=== PATIENT | male | born 1945 | race Caucasian/White ===

== ENCOUNTER 2020-02-07 07:47 | Day surgery (SDC) | payer BC ==
[~2020-02-07] VITALS: Ht 188 cm; Wt 107.3 kg
[2020-02-07] VITALS (12 sets, daily range): BP systolic 108–141; BP diastolic 67–91
[~2020-02-07 07:47] MED LIST: ALB0.5UD IH; ALBU8.5H8 INH; APIX5TAB3 PO; ATOR80TA13 PO; BUDE0.5A3 INH; CLOP75TA15 PO; DULA0.75 SUBCUT; FLO0.4C PO; HYDR-4353 PO; INSU100V41 SUBCUT; INUL2TAB5 PO; LACT1CAP65 PO; LISI-604 PO; METO100T7 PO; NITR0.4T51 SL; OMEG-79 PO; PANT20TA18 PO; TORS20TA3 PO
[2020-02-07] MEDS ORDERED: normal saline 1,000 ML IV SCH ×3 (08:10→14:05)
[2020-02-07] MEDS ORDERED: diphenhydrAMINE 25mg capsule PO PRN (08:10)
[2020-02-07] MEDS ORDERED: verapamil 2.5 mg/ml inj IV ONE (08:58)
[2020-02-07] MEDS ORDERED: fentaNYL/PF 50MCG/1 ML 2ML syringe ONE ×2 (08:58→11:06)
[2020-02-07] MEDS ORDERED: nitroGLYCERIN-Tridil 50MG/D5W 250 ML IV ONE (08:58)
[2020-02-07] MEDS ORDERED: heparin 1,000unit/ml 10ml vial 10 ML ONE ×2 (08:58→10:09)
[2020-02-07] MEDS ORDERED: midazolam 2 mg/2 ml injection ONE ×3 (08:58→10:49)
[2020-02-07] MEDS ORDERED: iohexol 350 MG/1 ML 200ml bottle ONE (08:59)
[2020-02-07] MEDS ORDERED: LIDOcaine 1% (10mg/ml)w/preservative injection 20ml MDV ONE (09:00)
[2020-02-07] MEDS ORDERED: heparin 1,000 UNITS/NS 500ml 500 ML ONE (09:09)
[2020-02-07 09:30] LABS: BASOPHILS # (AUTO) 0.1 X10'3 (0-0.2); BASOPHILS % (AUTO) 0.8 % (0-1); EOSINOPHILS # (AUTO) 0.2 X10'3 (0-0.9); EOSINOPHILS % (AUTO) 3.4 % (0-6); HEMATOCRIT 41.8 % (42.0-52.0); HEMOGLOBIN 13.6 g/dl (14.0-17.9); LYMPHOCYTES # (AUTO) 0.6 X10'3 (1.1-4.8); LYMPHOCYTES % (AUTO) 9.5 % (21-51); MEAN CORPUSCULAR HEMOGLOBIN 29.8 PG (27.0-31.0); MEAN CORPUSCULAR HGB CONC 32.6 g/dL (33.0-36.5); MEAN CORPUSCULAR VOLUME 91.4 FL (78-98); MEAN PLATELET VOLUME 10.6 FL (7.4-10.4); MONOCYTES # (AUTO) 0.7 X10'3 (0-0.9); MONOCYTES % (AUTO) 10.1 % (2-12); NEUTROPHILS % (AUTO) 76.2 % (42-75); PLATELET COUNT 146 X10'3 (140-440); RED BLOOD COUNT 4.57 X10'6 (4.70-6.10); RED CELL DISTRIBUTION WIDTH 16.4 % (11.5-14.5); WHITE BLOOD COUNT 6.6 X10'3 (4.5-11.0)
[2020-02-07 10:05] LABS: ALBUMIN 3.3 G/DL (3.4-5.0); ANION GAP 10 (8-16); BLOOD UREA NITROGEN 44 MG/DL (7-18); CALCIUM 8.6 MG/DL (8.5-10.1); CHLORIDE 106 MMOL/L (99-107); CREATININE 1.69 MG/DL (0.60-1.10); GLUCOSE 99 MG/DL (70-104); MAGNESIUM 1.9 MG/DL (1.5-2.4); POTASSIUM 3.5 MMOL/L (3.5-5.1); SODIUM 143 MMOL/L (135-145); TOTAL CARBON DIOXIDE 26.8 MMOL/L (24-32); eGFR 40 ML/MIN
[2020-02-07 10:42] LABS: ANISOCYTOSIS 1+; BURR CELLS 1+; LARGE PLATELETS FEW; PLATELET ESTIMATE NORMAL
[2020-02-07] MEDS ORDERED: atropine 0.1mg/ml 10ml syringe ONE (11:17)
[2020-02-07] MEDS ORDERED: ondansetron/PF 4mg/2ml inj IV PRN (12:05)
[2020-02-07] MEDS ORDERED: OXAZEpam 15mg capsule PO PRN (12:05)
[2020-02-07] MEDS ORDERED: HYDROcodone/acetaminophen 10/325mg tab PO PRN (12:05)
[2020-02-07] MEDS ORDERED: HYDROcodone/acetaminophen 5mg/325mg tablet PO PRN (12:05)
[2020-02-07] MEDS ORDERED: proCHLORperazine 10 MG/2 ml inj IV PRN (12:05)
[2020-02-07] MEDS ORDERED: bumetanide 0.25mg/ml 4ml vial IV ONE (13:00)
== END 2020-02-07 16:00 | disposition home or self-care (01) ==
LOC: SSTAY O 07:47
PROVIDERS: ATTEND Internal Medicine Cardiovascular Disease
DX: I44.7 Left bundle-branch block, unspecified (principal); I25.10 Atherosclerotic heart disease of native coronary artery without angina pectoris; I42.0 Dilated cardiomyopathy; I25.2 Old myocardial infarction; I48.20 Chronic atrial fibrillation, unspecified; E11.22 Type 2 diabetes mellitus with diabetic chronic kidney disease; I12.9 Hypertensive chronic kidney disease with stage 1 through stage 4 chronic kidney disease, or unspecified chronic kidney disease; N18.4 Chronic kidney disease, stage 4 (severe); N40.0 Benign prostatic hyperplasia without lower urinary tract symptoms; E78.5 Hyperlipidemia, unspecified; M19.90 Unspecified osteoarthritis, unspecified site; Z95.5 Presence of coronary angioplasty implant and graft; Z96.653 Presence of artificial knee joint, bilateral; Z96.641 Presence of right artificial hip joint; Z88.8 Allergy status to other drugs, medicaments and biological substances; Z79.01 Long term (current) use of anticoagulants; Z79.899 Other long term (current) drug therapy
CPT/HCPCS: 36415; 80048; 83735; 85025; 85610; 93005; 99152; 99153; C1725; C1751; C1756; C1760; C1769; C1874; C1885; C1892; C1894; C9602; J0461; J1644; J2001; J2250; J3010; J7030; Q0163; Q9967; 85008; A6258; J3490

== ENCOUNTER 2020-04-06 07:34 | Day surgery (SDC) | payer BC ==
[2020-04-06] VITALS (9 sets, daily range): BP systolic 102–137; BP diastolic 64–85
[~2020-04-06] VITALS: Ht 188 cm; Wt 100.9 kg
[~2020-04-06 07:34] MED LIST changes: -INUL2TAB5 PO; -LACT1CAP65 PO; -LISI-604 PO; +LISI-790 PO; -NITR0.4T51 SL; -OMEG-79 PO
[2020-04-06] MEDS ORDERED: MIDAZolam 1mg/ml 10ml vial IV ONE (08:05)
[2020-04-06] MEDS ORDERED: normal saline 1000ml 1,000 ML IV SCH (08:05)
[2020-04-06] MEDS ORDERED: fentaNYL/PF 50MCG/1 ML 2ML syringe IV ONE (08:05)
[2020-04-06] MEDS ORDERED: cefazolin/dext.iso 2gm/50ml 50 ML IV ONE (08:10)
[2020-04-06] MEDS ORDERED: LISI10TA27 PO (08:17)
[2020-04-06] MEDS ORDERED: IPRA3AMP31 NEB (08:17)
[2020-04-06] MEDS ORDERED: POTA-82 PO (08:19)
[2020-04-06] MEDS ORDERED: MAGN400C PO (08:24)
[2020-04-06] MEDS ORDERED: FLUT1BLS16 INH (08:24)
[2020-04-06] MEDS ORDERED: DOCU-148 PO (08:24)
[2020-04-06] MEDS ORDERED: ALBU18HF2 IH (08:24)
[2020-04-06] MEDS ORDERED: CLOB30CR11 TOP (08:24)
[2020-04-06] MEDS ORDERED: LACT1CAP57 PO (08:24)
[2020-04-06] MEDS ORDERED: SERT25TA84 (08:24)
[2020-04-06 08:27] LABS: BASOPHILS % (AUTO) 0.8 % (0-1); EOSINOPHILS # (AUTO) 0.2 X10'3 (0-0.9); HEMATOCRIT 42.6 % (42.0-52.0); HEMOGLOBIN 14.3 g/dl (14.0-17.9); LYMPHOCYTES % (AUTO) 17.3 % (21-51); MEAN CORPUSCULAR HEMOGLOBIN 30.3 PG (27.0-31.0); MEAN CORPUSCULAR HGB CONC 33.5 g/dL (33.0-36.5); MEAN CORPUSCULAR VOLUME 90.4 FL (78-98); MEAN PLATELET VOLUME 8.5 FL (7.4-10.4); MONOCYTES # (AUTO) 0.5 X10'3 (0-0.9); MONOCYTES % (AUTO) 8.9 % (2-12); PLATELET COUNT 189 X10'3 (140-440); RED BLOOD COUNT 4.72 X10'6 (4.70-6.10); RED CELL DISTRIBUTION WIDTH 17.1 % (11.5-14.5); WHITE BLOOD COUNT 5.8 X10'3 (4.5-11.0)
[2020-04-06] MEDS ORDERED: NITR0.4T48 SL (08:31)
[2020-04-06] MEDS ORDERED: INSU100I25 SQ (08:31)
[2020-04-06 08:39] LABS: ALBUMIN 3.7 G/DL (3.4-5.0); ANION GAP 11 (8-16); BLOOD UREA NITROGEN 45 MG/DL (7-18); CALCIUM 9.1 MG/DL (8.5-10.1); CHLORIDE 104 MMOL/L (99-107); GLUCOSE 116 MG/DL (70-104); MAGNESIUM 1.9 MG/DL (1.5-2.4); POTASSIUM 4.1 MMOL/L (3.5-5.1); SODIUM 140 MMOL/L (135-145)
[2020-04-06 08:43] LABS: CREATININE 1.94 MG/DL (0.60-1.10); eGFR 34 ML/MIN
[2020-04-06] MEDS ORDERED: midazolam 2 mg/2 ml injection ONE ×3 (08:55→10:41)
[2020-04-06] MEDS ORDERED: proCHLORperazine 10 MG/2 ml inj ONE (08:55)
[2020-04-06] MEDS ORDERED: LIDOcaine 1% W/epiNEPHrine 1:100,000 20ml vial ONE (08:55)
[2020-04-06] MEDS ORDERED: fentaNYL/PF 50MCG/1 ML 2ML syringe ONE ×3 (08:55→10:41)
[2020-04-06 09:05] LABS: BUN/CREATININE RATIO 23.2 (5.4-32.0)
[2020-04-06] MEDS ORDERED: iohexol 350MG/ML 100ml bottle IV ONE (09:35)
[2020-04-06] MEDS ORDERED: vancomycin 1,000mg inj ONE (10:39)
[2020-04-06] MEDS ORDERED: HYDROcodone/acetaminophen 10/325mg tab PO PRN (11:50)
[2020-04-06] MEDS ORDERED: HYDROcodone/acetaminophen 5mg/325mg tablet PO PRN (11:50)
[2020-04-06] MEDS ORDERED: normal saline 1000ml 1,000 ML IV ONE (11:55)
== END 2020-04-06 14:00 | disposition home or self-care (01) ==
LOC: SSTAY O 07:34
PROVIDERS: ATTEND Internal Medicine Cardiovascular Disease
DX: I42.0 Dilated cardiomyopathy (principal); I25.5 Ischemic cardiomyopathy; I47.2 Ventricular tachycardia; I44.7 Left bundle-branch block, unspecified; I48.92 Unspecified atrial flutter; Z79.899 Other long term (current) drug therapy
CPT/HCPCS: 33225; 33249; 36415; 71045; 80048; 82948; 83735; 85025; 85610; 92960; 93005; 99152; 99153; C1769; C1882; C1887; C1895; C1900; J0780; J2250; J3010; J3370; Q9967; 93641; A4565; A4620; A6258; C1777; C1898

== ENCOUNTER 2020-06-29 22:58 | Observation (INO) | payer BC ==
[~2020-06-29] VITALS: Ht 188 cm; Wt 95.5 kg
[~2020-06-29 22:58] MED LIST changes: -ALB0.5UD IH; +ALBU18HF2 IH; +CLOB30CR11 TOP; +DOCU-148 PO; +FLUT1BLS16 INH; +INSU100I25 SQ; -INSU100V41 SUBCUT; +IPRA3AMP31 NEB; +LACT1CAP57 PO; -LISI-790 PO; +LISI10TA27 PO; +MAGN400C PO; +NITR0.4T48 SL; +POTA-82 PO; +SERT25TA84 PO
[2020-06-30 00:31] LABS: BASOPHILS % (AUTO) 0.7 % (0-1); EOSINOPHILS # (AUTO) 0.3 X10'3 (0-0.9); EOSINOPHILS % (AUTO) 4.5 % (0-6); HEMOGLOBIN 12.8 g/dl (14.0-17.9); LYMPHOCYTES # (AUTO) 0.8 X10'3 (1.1-4.8); MEAN CORPUSCULAR HEMOGLOBIN 31.7 PG (27.0-31.0); MEAN CORPUSCULAR HGB CONC 33.6 g/dL (33.0-36.5); MEAN CORPUSCULAR VOLUME 94.3 FL (78-98); MEAN PLATELET VOLUME 7.8 FL (7.4-10.4); MONOCYTES # (AUTO) 0.6 X10'3 (0-0.9); MONOCYTES % (AUTO) 8.8 % (2-12); NEUTROPHILS # (AUTO) 4.9 X10'3 (1.8-7.7); PLATELET COUNT 254 X10'3 (140-440); RED BLOOD COUNT 4.03 X10'6 (4.70-6.10); RED CELL DISTRIBUTION WIDTH 14.5 % (11.5-14.5); WHITE BLOOD COUNT 6.6 X10'3 (4.5-11.0)
[2020-06-30 00:38] LABS: ALANINE AMINOTRANSFERASE 22 U/L (12-78); ALBUMIN 3.3 G/DL (3.4-5.0); ALBUMIN/GLOBULIN RATIO 0.9 (1.1-1.5); ALKALINE PHOSPHATASE 94 IU/L (46-116); ANION GAP 9 (8-16); ASPARTATE AMINO TRANSFERASE 24 U/L (10-37); BILIRUBIN,TOTAL 0.4 MG/DL (0.1-1.0); BLOOD UREA NITROGEN 21 MG/DL (7-18); BUN/CREATININE RATIO 17.5 (5.4-32.0); CALCIUM 8.5 MG/DL (8.5-10.1); CHLORIDE 105 MMOL/L (99-107); GLUCOSE 151 MG/DL (70-104); POTASSIUM 3.9 MMOL/L (3.5-5.1); SODIUM 141 MMOL/L (135-145); TOTAL CARBON DIOXIDE 26.6 MMOL/L (24-32); TOTAL PROTEIN 6.8 G/DL (6.4-8.2); eGFR 59 ML/MIN
[2020-06-30] MEDS ORDERED: iohexol 350MG/ML 100ml bottle IV ONE (01:20)
--- NOTE | 2020-06-30 01:30 | NUR ---
Pt presents d/t "coughing up blood." Hx of blood thinner use r/t cardiac stenting and AICD. Pt AAOx4, no s/sx of acute distress noted. Respirations even, unlabored. Will continue to monitor.
--- NOTE | 2020-06-30 01:35 | NUR ---
Pt to CT
[2020-06-30] MEDS ORDERED: POTA10TA19 PO (02:55)
[2020-06-30] MEDS ORDERED: EMPA10TA PO (02:55)
[2020-06-30] MEDS ORDERED: MULT-1172 (02:56)
[2020-06-30] MEDS ORDERED: INUL2TAB5 PO (02:56)
[2020-06-30] MEDS ORDERED: PANC1CAP PO (02:56)
[2020-06-30] MEDS ORDERED: SIME125C43 PO (02:56)
[2020-06-30] MEDS ORDERED: ALBU18HF2 IH (02:56)
[2020-06-30] MEDS ORDERED: nitroGLYCERIN 0.4mg SUBLingual tab SL PRN (03:10)
[2020-06-30] MEDS ORDERED: ipratropium/albuterol 3ml nebule NEB PRN (03:10)
[2020-06-30] MEDS ORDERED: budesonide 0.5mg/2ml UD nebule IH PRN (03:10)
[2020-06-30] MEDS ORDERED: HYDROcodone/acetaminophen 10/325mg tab PO PRN ×2 (03:10→03:30)
[2020-06-30] MEDS ORDERED: magnesium 2GM in 50ml NS 50 ML IV PRN (03:30)
[2020-06-30] MEDS ORDERED: mag hydrox/Alum hydrox/simeth 30ml oral suspension PO PRN (03:30)
[2020-06-30] MEDS ORDERED: potassium Cl 20 mEq SR tablet PO PRN ×2 (03:30)
[2020-06-30] MEDS ORDERED: ondansetron/PF 4mg/2ml inj IV PRN (03:30)
[2020-06-30] MEDS ORDERED: HYDROcodone/acetaminophen 5mg/325mg tablet PO PRN (03:30)
[2020-06-30] MEDS ORDERED: acetaminophen 325mg tablet PO PRN ×2 (03:30)
[2020-06-30] MEDS ORDERED: magnesium 4gm in 100ml NS 100 ML IV PRN (03:30)
[2020-06-30] MEDS ORDERED: potassium Cl 40MEQ/1/2NS 520ml 520 ML IV PRN ×2 (03:30)
[2020-06-30] MEDS ORDERED: dextrose 50%-water 50ml dispensing syringe IV PRN ×2 (03:50)
[2020-06-30] MEDS ORDERED: dextrose ORAL solution 15 GM/59 ML bottle PO PRN ×2 (03:50)
[2020-06-30] MEDS ORDERED: glucagon, human recombinant 1mg kit SUBCUT PRN (03:50)
[2020-06-30] MEDS ORDERED: MESSAGE TO PHARMACY PO ONE (03:50)
[2020-06-30] MEDS ORDERED: insulin Lispro (HumaLOG) vial - multi-dose SQ SCH (03:50)
[2020-06-30] MEDS ORDERED: sertraline 25mg tablet PO SCH (04:00)
[2020-06-30 04:16] LABS: HEMOGLOBIN A1C 5.8 % (4.5-6.2)
[2020-06-30] MEDS ORDERED: hydrALAZINE 20mg/ml inj. IV ONE (05:20)
[2020-06-30 06:00] VITALS: BP 180/106
[2020-06-30] MEDS ORDERED: pantoprazole 40mg Tablet.DR PO SCH (07:30)
[2020-06-30 07:37] LABS: HEMATOCRIT 37.9 % (42.0-52.0); HEMOGLOBIN 12.7 g/dl (14.0-17.9); MEAN CORPUSCULAR HEMOGLOBIN 31.7 PG (27.0-31.0); MEAN CORPUSCULAR HGB CONC 33.5 g/dL (33.0-36.5); MEAN CORPUSCULAR VOLUME 94.5 FL (78-98); PLATELET COUNT 249 X10'3 (140-440); RED BLOOD COUNT 4.01 X10'6 (4.70-6.10); RED CELL DISTRIBUTION WIDTH 14.6 % (11.5-14.5)
[2020-06-30] MEDS ORDERED: K and/or MAG REPLACEMENT MC SCH (08:00)
[2020-06-30] MEDS ORDERED: lisinopril 10 MG tablet PO SCH (08:00)
[2020-06-30] MEDS ORDERED: docusate sod 100mg capsule PO SCH (08:00)
[2020-06-30] MEDS ORDERED: metoprolol succinate 25mg (24-HOUR) SR. Tablet PO SCH (08:00)
[2020-06-30] MEDS ORDERED: Torsemide 20 MG TABLET PO SCH (08:00)
[2020-06-30] MEDS ORDERED: atorvastatin 20mg tablet PO SCH (08:00)
[2020-06-30] MEDS ORDERED: tamsulosin 0.4mg capsule PO SCH (08:00)
[2020-06-30] MEDS ORDERED: clobetasol 0.05% cream 30gm TP SCH (08:00)
[2020-06-30 10:36] VITALS: BP 153/84
[2020-06-30] MEDS ORDERED: LEVO500T89 PO (12:14)
--- NOTE | 2020-06-30 12:45 | NUR ---
Dr Shaver rounding, wants to clear Pt for DC, but states that Pt cannot go home on two blood thinners, post admission for hemoptysis. Dr Shaver states that Pt may be able to follow up with his PCP regarding abnormal CXR, and also that RN cannot DC Pt until an updated Medication for blood thinner is received from Dr Fraire. states if RN cannot get ahold of Dr Pike to call Dr Shaver back.
[2020-06-30 13:37] LABS: HEMATOCRIT 38.4 % (42.0-52.0); HEMOGLOBIN 12.9 g/dl (14.0-17.9); MEAN CORPUSCULAR HEMOGLOBIN 31.6 PG (27.0-31.0); MEAN CORPUSCULAR HGB CONC 33.7 g/dL (33.0-36.5); PLATELET COUNT 251 X10'3 (140-440); RED BLOOD COUNT 4.08 X10'6 (4.70-6.10); RED CELL DISTRIBUTION WIDTH 14.7 % (11.5-14.5); WHITE BLOOD COUNT 6.3 X10'3 (4.5-11.0)
--- NOTE | 2020-06-30 14:17 | NUR ---
This RN was updated by break nurse Mely MONTEZ, that she spoke to Dr Mary regarding DC status of Pt. Raine MONTEZ told MD that Dr Pike's office has been called and voicemail left for Dr Pike to call [facility] with a change in Medication (blood thinners) before Pt can be DC'ed.
--- NOTE | 2020-06-30 15:25 | NUR ---
DR Shaver updated RN, she is stopping Blood thinners Plavix and eliquis on DC. Pt is instructed to followup with Dr Pike tomorrow.
--- NOTE | 2020-06-30 15:25 | NUR ---
PAGER ID: [phone] MESSAGE: [id number] Edwardo PEDROZA RN, [phone], Please clarify if we are still making change to Pt blood thinners? DC instructions the same?
--- NOTE | 2020-06-30 16:49 | NUR ---
PAGER ID: [phone] MESSAGE: [id number] Edwardo PEDROZA RN, [phone], Pt very hesitant to leave w/o orders for both or one thinner. Concerned he needs at least one, has no follow up Apt, or directives from Dr Bobo regarding meds. Dr Bobo's Office has been called w/ no response.
--- NOTE | 2020-06-30 16:53 | NUR ---
Dr Shaver notifies RN that she spoke to Dr Pike and that He said for Pt to stop taking both blood thinners now, and that He will call Mr Bhakta for followup instructions. Dr Shaver instructs that Pt is cleared for DC. RN relayed this message to Pt and Spouse, they are in agreement with plan of care and discharge instructions.
[2020-06-30] MEDS ORDERED: insulin glargine (Lantus) pen - multi-dose SQ SCH (21:00)
== END 2020-06-30 17:45 | disposition home or self-care (01) ==
LOC: ER 22:58 → ED HOLD 06-30 03:30 → ORTHO 4S 06-30 04:40
PROVIDERS: ADMIT Family Medicine; ATTEND Internal Medicine
DX: R04.2 Hemoptysis (principal); I25.10 Atherosclerotic heart disease of native coronary artery without angina pectoris; I13.0 Hypertensive heart and chronic kidney disease with heart failure and stage 1 through stage 4 chronic kidney disease, or unspecified chronic kidney disease; E11.22 Type 2 diabetes mellitus with diabetic chronic kidney disease; I50.9 Heart failure, unspecified; N18.9 Chronic kidney disease, unspecified; Z85.828 Personal history of other malignant neoplasm of skin; Z87.891 Personal history of nicotine dependence; Z95.810 Presence of automatic (implantable) cardiac defibrillator; Z85.72 Personal history of non-Hodgkin lymphomas; Z95.5 Presence of coronary angioplasty implant and graft; Z96.643 Presence of artificial hip joint, bilateral; Z96.653 Presence of artificial knee joint, bilateral; Z79.4 Long term (current) use of insulin; Z79.01 Long term (current) use of anticoagulants; Z79.02 Long term (current) use of antithrombotics/antiplatelets; Z79.899 Other long term (current) drug therapy; Z88.6 Allergy status to analgesic agent; Z91.040 Latex allergy status
CPT/HCPCS: 36415; 71046; 71275; 80053; 82948; 83036; 85025; 85027; 85610; 87081; 96374; 99285; G0378; J0360; Q9967; J1815

== ENCOUNTER 2020-08-11 06:49 | Day surgery (SDC) | payer BC ==
[2020-08-04 15:25] LABS: BASOPHILS % (AUTO) 0.7 % (0-1); EOSINOPHILS # (AUTO) 0.4 X10'3 (0-0.9); EOSINOPHILS % (AUTO) 8.2 % (0-6); LYMPHOCYTES # (AUTO) 0.6 X10'3 (1.1-4.8); LYMPHOCYTES % (AUTO) 11.7 % (21-51); MEAN CORPUSCULAR HEMOGLOBIN 31.2 PG (27.0-31.0); MEAN CORPUSCULAR VOLUME 94.7 FL (78-98); MEAN PLATELET VOLUME 8.4 FL (7.4-10.4); MONOCYTES # (AUTO) 0.4 X10'3 (0-0.9); MONOCYTES % (AUTO) 8.9 % (2-12); NEUTROPHILS # (AUTO) 3.4 X10'3 (1.8-7.7); NEUTROPHILS % (AUTO) 70.5 % (42-75); PRE OP HEMATOCRIT 42.5 % (42.0-52.0); PRE OP PLATELET COUNT 195 X10'3 (140-440); RED BLOOD COUNT 4.49 X10'6 (4.70-6.10); RED CELL DISTRIBUTION WIDTH 13.9 % (11.5-14.5)
[2020-08-04 15:35] LABS: PRE OP INR 1.1 INR; PRE OP PROTIME 11.2 SECONDS (9.0-12.0)
[2020-08-04 15:38] LABS: ALBUMIN 3.7 G/DL (3.4-5.0); ALBUMIN/GLOBULIN RATIO 1.1 (1.1-1.5); ALKALINE PHOSPHATASE 68 IU/L (46-116); BLOOD UREA NITROGEN 22 MG/DL (7-18); BUN/CREATININE RATIO 17.1 (5.4-32.0); CALCIUM 9.1 MG/DL (8.5-10.1); CHLORIDE 105 MMOL/L (99-107); CREATININE 1.29 MG/DL (0.60-1.10); PRE OP ALT 15 U/L (30-65); PRE OP ANION GAP 7 (8-16); PRE OP AST 25 U/L (10-37); PRE OP BILIRUB, TOTAL 0.6 MG/DL (0.0-1.0); PRE OP GLUCOSE 116 MG/DL (70-104); PRE OP POTASSIUM 4.9 MMOL/L (3.4-5.1); PRE OP SODIUM 142 MMOL/L (135-145); TOTAL CARBON DIOXIDE 30.5 MMOL/L (24-32); TOTAL PROTEIN 7.2 G/DL (6.4-8.2); eGFR 54 ML/MIN
[~2020-08-11] VITALS: Ht 190.5 cm; Wt 98.0 kg
[2020-08-11] VITALS (7 sets, daily range): BP systolic 145–168; BP diastolic 85–96
[~2020-08-11 06:49] MED LIST changes: -ALBU18HF2 IH; -APIX5TAB3 PO; +ATR0.5NEB NEB; +BUPIVAcaine/PF 2.5 mg/ml (0.25%) 30ml vial ONE; +DOCUMENT DATE & TIME OF BETA-BLOCKER PO ONE; +EMPA10TA PO; +FLUCINONIDE; -FLUT1BLS16 INH; -INSU100I25 SQ; +INUL2TAB5 PO; -IPRA3AMP31 NEB; +LIDOcaine 1% 30ml preserv. free vial ONE; +MULT-1172; +MUPI22OI30 TOP; +PANC1CAP PO; -POTA-82 PO; +POTA10TA19 PO; +SIME125C43 PO; +albuterol 2.5 MG/3 ML nebule NEB ONE; +cefazolin/dext.iso 2gm/100ml IV ONE; +famotidine 20mg tablet PO ONE; +prevagen PO; +ringers solution, lacted 1,000 ML IV SCH
[2020-08-11] MEDS ORDERED: fentaNYL /PF 50mcg/ml 5ml ampule ONE (08:30)
[2020-08-11] MEDS ORDERED: midazolam 1 mg/ML 2ml injection ONE (08:30)
[2020-08-11] MEDS ORDERED: sevoflurane 250ml liquid IH ONE (08:52)
[2020-08-11] MEDS ORDERED: LIDOcaine 2% 5ml jelly ONE (09:14)
[2020-08-11] MEDS ORDERED: rocuronium 10mg/ml inj IV ONE (09:14)
[2020-08-11] MEDS ORDERED: LIDOcaine 2% (20mg/ml) 5ml vial ONE (09:14)
[2020-08-11] MEDS ORDERED: propofol inj 20 ML IV ONE (09:15)
[2020-08-11] MEDS ORDERED: dexamethasone sod phosphate 4mg/ml inj. ONE (09:16)
[2020-08-11] MEDS ORDERED: ondansetron/PF 4mg/2ml inj ONE (09:16)
[2020-08-11] MEDS ORDERED: proCHLORperazine 10 MG/2 ml inj IV PRN (09:50)
[2020-08-11] MEDS ORDERED: morphine 2 MG/ML inj. syringe IV PRN (09:50)
[2020-08-11] MEDS ORDERED: acetaminophen 1,000mg/100ml IV 100 ML IV PRN (09:50)
[2020-08-11] MEDS ORDERED: ringers solution, lacted 1,000 ML IV SCH (09:50)
[2020-08-11] MEDS ORDERED: meperidine/PF 25mg/ml syringe IV PRN (09:50)
[2020-08-11] MEDS ORDERED: HYDROmorphone/PF 0.2 MG/ML SYRINGE IV PRN ×2 (09:50)
[2020-08-11] MEDS ORDERED: ondansetron/PF 4mg/2ml inj IV PRN (09:50)
[2020-08-11] MEDS ORDERED: morphine 4 MG/ML inj SYRINge IV PRN (09:50)
[2020-08-11] MEDS ORDERED: labetalol 20mg/4ml (5mg/ml) syringe IV PRN (09:50)
[2020-08-11] MEDS ORDERED: hydrALAZINE 20mg/ml inj. IV PRN (09:50)
[2020-08-11] MEDS ORDERED: neostigmine methylsulfate 1 MG/ML 10ml vial ONE (10:15)
--- NOTE | 2020-08-11 10:32 | NUR ---
Received from OR via , accompanied by Anesthesiologist DR PENDLETON and report given by Anesthesiolgist. AWAKENS TO VOICE. VITALS STABLE. DRESSINGS DI. AYAN PAIN. ABD SOFT.
[2020-08-11] MEDS ORDERED: HYDROcodone/acetaminophen 5mg/325mg tablet PO PRN ×2 (10:40)
--- NOTE | 2020-08-11 11:52 | NUR ---
AWAKE AND ORIENTED. VITALS STABLE. DRESSING DI. AYAN PAIN. HOME WITH HIS SPOUSE AT THIS TIME.
== END 2020-08-11 11:52 | disposition home or self-care (01) ==
LOC: PAS 06:49
PROVIDERS: ATTEND Surgery
DX: K40.30 Unilateral inguinal hernia, with obstruction, without gangrene, not specified as recurrent (principal); I11.0 Hypertensive heart disease with heart failure; I50.9 Heart failure, unspecified; I25.10 Atherosclerotic heart disease of native coronary artery without angina pectoris; J45.909 Unspecified asthma, uncomplicated; Z88.8 Allergy status to other drugs, medicaments and biological substances; Z91.040 Latex allergy status; Z79.899 Other long term (current) drug therapy; Z79.01 Long term (current) use of anticoagulants; Z72.89 Other problems related to lifestyle; Z85.828 Personal history of other malignant neoplasm of skin; Z82.61 Family history of arthritis; Z83.3 Family history of diabetes mellitus; Z82.49 Family history of ischemic heart disease and other diseases of the circulatory system; Z81.8 Family history of other mental and behavioral disorders; Z80.8 Family history of malignant neoplasm of other organs or systems
CPT/HCPCS: 36415; 49650; 71046; 80053; 82948; 85025; 85610; 85730; C1781; J1100; J2001; J2250; J2405; J2704; J2710; J3010; J3490; A4215; A4618; J7120

== ENCOUNTER 2025-01-09 08:02 | Day surgery (SDC) | payer BC ==
[~2025-01-09] VITALS: Ht 188 cm; Wt 106.8 kg
[~2025-01-09 08:02] MED LIST changes: +ALBU8.5H17 INH; -ALBU8.5H8 INH; -BUPIVAcaine/PF 2.5 mg/ml (0.25%) 30ml vial ONE; -DOCUMENT DATE & TIME OF BETA-BLOCKER PO ONE; -LIDOcaine 1% 30ml preserv. free vial ONE; +POTA-192 PO; -POTA10TA19 PO; -albuterol 2.5 MG/3 ML nebule NEB ONE; -cefazolin/dext.iso 2gm/100ml IV ONE; -famotidine 20mg tablet PO ONE; -ringers solution, lacted 1,000 ML IV SCH
[2025-01-09 08:36] VITALS: BP 164/97; PULSE 64; RESP 16; TEMP 97.6; O2SAT 97
[2025-01-09] MEDS ORDERED: APIX5TAB3 PO (08:40)
[2025-01-09] MEDS ORDERED: normal saline 1000ml 1,000 ML IV SCH (08:45)
[2025-01-09] MEDS ORDERED: TAMS-55 PO (08:45)
[2025-01-09] MEDS ORDERED: SEMA2PEN INJ (08:49)
[2025-01-09] MEDS ORDERED: BICA50TA7 PO (08:49)
[2025-01-09] MEDS ORDERED: BUDE10.32 INH (08:49)
[2025-01-09] MEDS ORDERED: MONT-40 PO (08:49)
[2025-01-09] MEDS ORDERED: lutein (08:52)
[2025-01-09] MEDS ORDERED: [UNRECOGNIZED DRUG - OTHER] PO (08:52)
[2025-01-09] MEDS ORDERED: [UNRECOGNIZED DRUG - CODE] INJ (08:55)
[2025-01-09] MEDS ORDERED: BUDE10.2 INH (08:59)
[2025-01-09] MEDS ORDERED: ALBU18HF2 INH (08:59)
--- NOTE | 2025-01-09 16:00 | PROGRESS NOTE ---
H&P - Interval Note Providers to CC ~ Patient examined and condition: Yes Interval changes as follows: Paper H and P in chart today. Left neck LN fna for today scheduled. Risks benefits alt d/w pt informed consent disclosed. However after US evaluation, the prior LN biopsied months ago is smaller in appearance and less suspicious at this time to warrant the risks of biopsy. Recommend 6 month interval US exam for stability. CADY FRANCES MD Jan 09, 2025 16:00
--- NOTE | 2025-01-09 17:35 | RADIOLOGY REPORT ---
Left neck ultrasound-Limited HISTORY: Evaluate for possible lymph node left neck, prior nondiagnostic aspiration. Real-time ultrasound examination of the left neck including the anterior left upper chest extending to the clavicle demonstrates only a small 8 mm nodule in the lower left cervical chain representing a decrease in size from the prior ultrasound at an outside facility. This ultrasound was dated 10/31/2024 where the dimensions were listed as 18 mm x 6 mm x 6 mm. The biopsy was therefore not performed due to the risks outweighing the benefits. IMPRESSION: Left neck cervical lymph node appears smaller in size and may have been a reactive/inflammatory enlargement. Recommend 6 month interval follow-up ultrasound to determine stability and need for possible intervention. Message reported to the office of Dr. Luna at exam completion.
== END 2025-01-09 10:30 | disposition home or self-care (01) ==
LOC: SSTAY O 08:02
PROVIDERS: ATTEND Radiology Diagnostic Radiology
DX: C61 Malignant neoplasm of prostate (principal); C77.5 Secondary and unspecified malignant neoplasm of intrapelvic lymph nodes; Z53.8 Procedure and treatment not carried out for other reasons; I11.0 Hypertensive heart disease with heart failure; I50.30 Unspecified diastolic (congestive) heart failure; E11.9 Type 2 diabetes mellitus without complications; I48.20 Chronic atrial fibrillation, unspecified; Z87.440 Personal history of urinary (tract) infections; Z95.810 Presence of automatic (implantable) cardiac defibrillator; Z96.643 Presence of artificial hip joint, bilateral; Z96.653 Presence of artificial knee joint, bilateral; Z96.611 Presence of right artificial shoulder joint; Z98.890 Other specified postprocedural states; Z88.8 Allergy status to other drugs, medicaments and biological substances
CPT/HCPCS: 76536